=== PATIENT | female | born 1955 | race Caucasian/White ===

== ENCOUNTER → 2025-02-13 | Outpatient (CLI) | payer MEDICARE, BC, SELFPAY ==
[2025-02-13 16:20] LABS: Absolute Lymphocyte Count 1.24 X10^3/uL (0.83-4.51); Absolute Neutrophil Count 2.2 X10^3/uL (2.0-7.7); Basophil# 0.02 X10^3/uL; Basophil% 0.5 % (0-1); Eosinophil# 0.21 X10^3/uL; Eosinophils% 5.2 % (0-5); Hematocrit 39.8 % (37-47); Hemoglobin 13.1 g/dL (12.0-15.0); Lymphocyte # 1.24 X10^3/ul (0.83-4.51); Lymphocyte % 30.8 % (19-41); Mean Corp Hgb Conc 32.9 g/dL (32-36); Mean Corpuscular Hgb 31.1 pg (27.0-32.0); Mean Corpuscular Volume 94.5 fL (81-99); Mean Platelet Vol. 10.6 fl (6.2-12.0); Monocyte# 0.32 X10^3/uL; NRBC Flagged by Analyzer 0 % (0-5); Neutrophil # 2.22 X10^3/uL (2.7-7.7); Neutrophil % 55.3 % (47-70); Platelet Count 202 K/mm3 (150-450); RBC Distribution Width CV 13.2 % (11.6-14.6); Red Blood Count 4.21 M/mm3 (4.2-5.4)
[2025-02-13 16:44] LABS: ALB/GLOB Ratio 1.7 RATIO (0.9-2.4); AST(SGOT) 37 U/L (<=31); Alanine Aminotransfer ALT/SGPT 31 U/L (<=34); Albumin, Serum 4.5 g/dL (3.4-4.8); Alkaline Phosphatase 70 U/L (35-104); Anion Gap 11 (5-15); BUN 13 mg/dL (4-19); BUN/Creat Ratio 16.3 RATIO (10-20); Calcium,Total 9.6 mg/dL (7.6-11.0); Carbon Dioxide 25.7 mmol/L (21.0-32.0); Chloride 103 mmol/L (98-108); Creatinine, Serum 0.77 mg/dL (0.70-1.20); EST Glomerular Filtration Rate 83 (>60); Globulin 2.6 g/dL (2.2-4.2); Glucose 84 mg/dL (70-99); Potassium 4.4 mmol/L (3.3-5.1); Protein, Total 7.1 g/dL (5.9-8.4); Sodium Level 139 mmol/L (133-145); Total Bilirubin 0.35 mg/dL (0.00-1.30)
[2025-02-13 16:51] LABS: CRP < 3.00 mg/L (0.0-3.0)
[2025-02-15 08:09] LABS: CRP, High Sensitivity 0.47 mg/L (0.00-3.00); HOMOCYSTEINE 10.7 umol/L (0.0-19.2)
[2025-02-16 05:07] LABS: G6PD Quant Test 282 (127-427); Red Blood Cell Count Test/G6PD 4.28 x10E6/uL (3.77-5.28)
== END | disposition home or self-care (01) ==
PROVIDERS: Referring Provider Nurse Practitioner Family; Visit Provider Nurse Practitioner Family
DX: R53.82 Chronic fatigue, unspecified (principal); I48.19 Other persistent atrial fibrillation; R53.1 Weakness; R61 Generalized hyperhidrosis; R07.0 Pain in throat; H93.13 Tinnitus, bilateral; R14.0 Abdominal distension (gaseous); R11.0 Nausea; K59.00 Constipation, unspecified; G90.89 Other disorders of autonomic nervous system; G44.221 Chronic tension-type headache, intractable; R26.81 Unsteadiness on feet; L29.9 Pruritus, unspecified; R20.2 Paresthesia of skin
CPT/HCPCS: 80053; 82955; 83090; 83695; 85025; 86140; 86141

== ENCOUNTER → 2025-03-20 | Outpatient (CLI) | payer MEDICARE, BC, SELFPAY ==
[2025-03-20 18:50] LABS: Estradiol < 5.0 pg/mL; Ferritin 110 ng/mL (22-378); Iron 101 ug/dL (50-170); Testosterone, Total 2.72 ng/dL (5-32)
[2025-03-22 04:07] LABS: DHEA Sulfate 43.8 ug/dL (20.4-186.6)
[2025-03-22 11:08] LABS: PROGESTERONE 0.3 ng/mL (.)
== END | disposition home or self-care (01) ==
LOC: LABSPEC 15:48
PROVIDERS: Referring Provider Nurse Practitioner Family; Visit Provider Nurse Practitioner Family
DX: I48.19 Other persistent atrial fibrillation (principal); R53.82 Chronic fatigue, unspecified; R53.1 Weakness; R61 Generalized hyperhidrosis; R07.0 Pain in throat; H93.13 Tinnitus, bilateral; R14.0 Abdominal distension (gaseous); R11.0 Nausea; K59.00 Constipation, unspecified; R26.81 Unsteadiness on feet; L29.9 Pruritus, unspecified; R20.2 Paresthesia of skin; A68.1 Tick-borne relapsing fever; N39.0 Urinary tract infection, site not specified; E28.9 Ovarian dysfunction, unspecified; R06.00 Dyspnea, unspecified
CPT/HCPCS: 82627; 82670; 82728; 83540; 84144; 84403; 82626

== ENCOUNTER → 2025-10-10 | Outpatient (CLI) | payer MEDICARE, BC, SELFPAY ==
[2025-10-10 16:29] LABS: Hematocrit 38.9 % (37-47); Hemoglobin 12.5 g/dL (12.0-15.0); Immature Granulocytes Count 0.010 X10^3/uL (0.0-0.0); Mean Corp Hgb Conc 32.1 g/dL (32-36); Mean Corpuscular Volume 98.2 fL (81-99); Mean Platelet Vol. 10.6 fl (6.2-12.0); NRBC Flagged by Analyzer 0 % (0-5); Platelet Count 210 K/mm3 (150-450); RBC Distribution Width CV 12.6 % (11.6-14.6); RBC Distribution Width SD 45.8 fl (35.1-43.9); Red Blood Count 3.96 M/mm3 (4.2-5.4); White Blood Count 2.7 K/mm3 (4.4-11.0)
[2025-10-10 16:59] LABS: AST(SGOT) 39 U/L (<=31); Alanine Aminotransfer ALT/SGPT 33 U/L (<=34); Albumin, Serum 4.0 g/dL (3.4-4.8); Alkaline Phosphatase 90 U/L (35-104); Anion Gap 11 (5-15); BUN 8 mg/dL (4-19); BUN/Creat Ratio 10.6 RATIO (10-20); Calcium,Total 9.4 mg/dL (7.6-11.0); Carbon Dioxide 25.0 mmol/L (21.0-32.0); Chloride 105 mmol/L (98-108); Globulin 2.5 g/dL (2.2-4.2); Glucose 92 mg/dL (70-99); Potassium 4.8 mmol/L (3.3-5.1)
== END | disposition home or self-care (01) ==
LOC: LABSPEC 15:32
PROVIDERS: Referring Provider Nurse Practitioner Family; Visit Provider Nurse Practitioner Family
DX: R53.82 Chronic fatigue, unspecified (principal); I48.19 Other persistent atrial fibrillation; R53.1 Weakness; R61 Generalized hyperhidrosis; R07.0 Pain in throat; H93.13 Tinnitus, bilateral; R14.0 Abdominal distension (gaseous); R11.0 Nausea; K59.00 Constipation, unspecified; G90.89 Other disorders of autonomic nervous system; G44.221 Chronic tension-type headache, intractable; L29.9 Pruritus, unspecified; R20.2 Paresthesia of skin; A68.1 Tick-borne relapsing fever; N39.0 Urinary tract infection, site not specified; D72.819 Decreased white blood cell count, unspecified
CPT/HCPCS: 80053; 85025

== ENCOUNTER → 2025-10-26 | Outpatient (CLI) | payer MEDICARE, BC, SELFPAY | END | disposition home or self-care (01) | PROVIDERS: Referring Provider Nurse Practitioner Family; Visit Provider Nurse Practitioner Family | DX: R53.82 Chronic fatigue, unspecified (principal); I48.19 Other persistent atrial fibrillation; R53.1 Weakness; R61 Generalized hyperhidrosis; R07.0 Pain in throat; H93.13 Tinnitus, bilateral; R14.0 Abdominal distension (gaseous); R11.0 Nausea; K59.00 Constipation, unspecified; G90.89 Other disorders of autonomic nervous system; G44.221 Chronic tension-type headache, intractable; R26.81 Unsteadiness on feet; L29.9 Pruritus, unspecified; R20.2 Paresthesia of skin; N39.0 Urinary tract infection, site not specified; D72.819 Decreased white blood cell count, unspecified ==